=== PATIENT | female | born 1970 ===

== ENCOUNTER 2023-04-19 07:00 | Inpatient (IN) | payer OTHER ==
[~2023-04-19] VITALS: Ht 157.5 cm; Wt 58.1 kg
[2023-04-19 08:46] LABS: HEMATOCRIT 41.3 % (36.0-45.00); MEAN CELL VOLUME 90.1 fL (80.00-100.00); MEAN CORPUSCULAR HEMOGLOBIN 30.6 pg (27.00-32.0); PLATELET COUNT 191 K/uL (150-450); RED BLOOD COUNT 4.58 M/uL (4.00-6.00); RED CELL DISTRIBUTION WIDTH 13.1 % (11.5-14.5)
[2023-04-19 08:48] LABS: URINE APPEARANCE Clear; URINE BILIRRUBIN Negative (NEGATIVE); URINE BLOOD Small; URINE COLOR Yellow; URINE GLUCOSE Negative (NEGATIVE); URINE LEUKOCYTE Trace; URINE NITRATE Negative; URINE PROTEIN Negative (NEGATIVE); URINE UROBILINOGEN 0.2 E.U./dl
[2023-04-19 08:51] LABS: URINE BACTERIA 51.6 uL (0.0-1933); URINE EPITHELIAL CELLS 13.4 uL (0.0-38.8); URINE RBC 25.8 uL (0.0-20.8); URINE WBC 9.2 uL (0.0-23.2)
[2023-04-19] MEDS ORDERED: PROVERA2.5 MG (09:02)
[2023-04-19 09:43] LABS: INR 0.96; PARTIAL THROMBOPLASTIN TIME 29.1 SECONDS (22.0-34.0); PROTHROMBIN TIME 10.1 SECONDS (9.0-11.5)
[2023-04-19 09:55] LABS: BILIRUBIN TOTAL 0.47 mg/dL (0.3-1.2); CALCIUM 9.2 mg/dL (8.5-10.1); CREATININE SERUM 0.63 mg/dL (0.55-1.02); GFR 98.47; GLOBULINA 3.8 G/DL (2.4-3.5); POTASSIUM 4.2 mEq/L (3.5-5.1); TOTAL PROTEIN 7.8 gm/dL (6.4-8.2); TSH 2.19 uIU/mL (0.358-3.74)
[2023-04-22 14:51] LABS: HEMATOCRIT 38.8 % (36.0-45.00); HEMOGLOBIN 13.1 g/dL (12.0-15.00); MEAN CORPUSCULAR HEMOGLOBIN 30.4 pg (27.00-32.0); MEAN CORPUSCULAR HGB CONC 33.8 g/dl (32.0-36.0); PLATELET COUNT 195 K/uL (150-450); RED BLOOD COUNT 4.31 M/uL (4.00-6.00); RED CELL DISTRIBUTION WIDTH 13.2 % (11.5-14.5)
[2023-04-23] MEDS ORDERED: Tylenol #3 PO (07:16)
[2023-04-23] MEDS ORDERED: NAPR500T14 PO (07:16)
== END 2023-04-23 10:32 | disposition home or self-care (01) | DRG 743 ==
LOC: O/R 04-22 05:24 → OB/GYN 04-22 05:24
PROVIDERS: ADMIT Obstetrics & Gynecology; ATTEND Obstetrics & Gynecology
PROC: 0UT7FZZ Resection of Bilateral Fallopian Tubes, Via Natural or Artificial Opening With Percutaneous Endoscopic Assistance (ICD-10-PCS; 2023-04-22)
PROC: 0UT2FZZ Resection of Bilateral Ovaries, Via Natural or Artificial Opening With Percutaneous Endoscopic Assistance (ICD-10-PCS; 2023-04-22)
PROC: 0JQC0ZZ Repair Pelvic Region Subcutaneous Tissue and Fascia, Open Approach (ICD-10-PCS; 2023-04-22)
PROC: 0USG4ZZ Reposition Vagina, Percutaneous Endoscopic Approach (ICD-10-PCS; 2023-04-22)
PROC: 0TJB8ZZ Inspection of Bladder, Via Natural or Artificial Opening Endoscopic (ICD-10-PCS; 2023-04-22)
PROC: 0UT9FZZ Resection of Uterus, Via Natural or Artificial Opening With Percutaneous Endoscopic Assistance (ICD-10-PCS; principal; 2023-04-22 07:00)
DX: N80.03 Adenomyosis of the uterus (principal); N84.0 Polyp of corpus uteri; N72 Inflammatory disease of cervix uteri; Z20.822 Contact with and (suspected) exposure to COVID-19; N81.11 Cystocele, midline